=== PATIENT | female | born 1995 | race Caucasian/White ===

== ENCOUNTER 2016-05-29 21:33 | Outpatient (CLI) | payer BC ==
[2016-05-29 23:25] LABS: HEMOGLOBIN 11.3 gm/dl (12.3-15.3); RED BLOOD COUNT 3.57 M/UL (4.00-5.10); WHITE BLOOD COUNT 12.3 K/UL (4.5-11.0)
== END 2016-05-30 00:29 | disposition home or self-care (01) ==
LOC: GENOP 21:33
PROVIDERS: Obstetrics & Gynecology
DX: O26.893 Other specified pregnancy related conditions, third trimester (principal); R10.9 Unspecified abdominal pain; R11.0 Nausea; Z3A.31 31 weeks gestation of pregnancy
CPT/HCPCS: 36415; 80076; 82731; 85025; G0463

== ENCOUNTER 2016-06-01 12:48 | Outpatient (CLI) | payer BC | END 2016-06-01 14:27 | disposition home or self-care (01) | LOC: GENOP 12:48 | DX: O26.893 Other specified pregnancy related conditions, third trimester (principal); R10.9 Unspecified abdominal pain; Z3A.32 32 weeks gestation of pregnancy | CPT/HCPCS: 81001; G0463 ==

== ENCOUNTER → 2016-06-06 | Outpatient (CLI) | payer BC ==
[~2016-06-06] MED LIST: COLACE 100MG C100 MG PO
== END ==
DX: Z01.818 Encounter for other preprocedural examination (principal); O29.40 Spinal and epidural anesthesia induced headache during pregnancy, unspecified trimester; D68.0 Von Willebrand disease; Z3A.00 Weeks of gestation of pregnancy not specified

== ENCOUNTER → 2016-06-11 | Outpatient (CLI) | payer BC | LOC: US 07:45 | DX: O99.89 Other specified diseases and conditions complicating pregnancy, childbirth and the puerperium (principal); K82.8 Other specified diseases of gallbladder; N28.89 Other specified disorders of kidney and ureter; Z3A.01 Less than 8 weeks gestation of pregnancy | CPT/HCPCS: 76705 ==

== ENCOUNTER 2016-06-25 02:13 | Outpatient (CLI) | payer BC ==
[2016-06-25 03:28] LABS: HEMOGLOBIN 11.8 gm/dl (12.3-15.3); RED BLOOD COUNT 3.74 M/UL (4.00-5.10); WHITE BLOOD COUNT 11.4 K/UL (4.5-11.0)
[2016-06-25 03:44] LABS: BUN/CREATININE RATIO 14 (0-10)
== END 2016-06-25 14:42 | disposition home or self-care (01) ==
LOC: GENOP 02:13
PROVIDERS: Obstetrics & Gynecology
DX: O26.613 Liver and biliary tract disorders in pregnancy, third trimester (principal); O99.89 Other specified diseases and conditions complicating pregnancy, childbirth and the puerperium; R10.9 Unspecified abdominal pain; M54.5 Low back pain; K82.9 Disease of gallbladder, unspecified; Z3A.35 35 weeks gestation of pregnancy
CPT/HCPCS: 80053; 82150; 83690; 85025; 96360; 96361; 96365; 96367; 96374; J2270; J7120

== ENCOUNTER → 2016-07-06 | Outpatient (CLI) | payer BC | LOC: GENOP 17:17 | DX: O42.913 Preterm premature rupture of membranes, unspecified as to length of time between rupture and onset of labor, third trimester (principal); Z3A.35 35 weeks gestation of pregnancy | CPT/HCPCS: 81001; 83518; G0463 ==

== ENCOUNTER 2016-07-14 15:54 | Inpatient (IN) | payer BC ==
[~2016-07-14] VITALS: Ht 162.6 cm; Wt 93.9 kg
[2016-07-14 16:30] LABS: HEMOGLOBIN 11.9 gm/dl (12.3-15.3); RED BLOOD COUNT 3.7 M/UL (4.00-5.10); WHITE BLOOD COUNT 13.2 K/UL (4.5-11.0)
[2016-07-17 03:39] LABS: HEMOGLOBIN 9.9 gm/dl (12.3-15.3); RED BLOOD COUNT 3.16 M/UL (4.00-5.10); WHITE BLOOD COUNT 17.6 K/UL (4.5-11.0)
[2016-07-17 03:56] LABS: BUN/CREATININE RATIO 12 (0-10)
[2016-07-18] MEDS ORDERED: COLACE 100MG C100 MG PO (17:59)
== END 2016-07-18 13:25 | disposition home or self-care (01) | DRG 775 ==
LOC: GENOP 15:54 → OB 16:09
PROVIDERS: Obstetrics & Gynecology; ADMIT Obstetrics & Gynecology
PROC: 10E0XZZ Delivery of Products of Conception, External Approach (ICD-10-PCS; principal; 2016-07-16)
PROC: 0KQM0ZZ Repair Perineum Muscle, Open Approach (ICD-10-PCS; 2016-07-16)
PROC: 10907ZC Drainage of Amniotic Fluid, Therapeutic from Products of Conception, Via Natural or Artificial Opening (ICD-10-PCS; 2016-07-16)
PROC: 3E033VJ Introduction of Other Hormone into Peripheral Vein, Percutaneous Approach (ICD-10-PCS; 2016-07-16)
DX: O69.81X0 Labor and delivery complicated by cord around neck, without compression, not applicable or unspecified (principal); O26.613 Liver and biliary tract disorders in pregnancy, third trimester; O99.113 Other diseases of the blood and blood-forming organs and certain disorders involving the immune mechanism complicating pregnancy, third trimester; D68.0 Von Willebrand disease; K80.80 Other cholelithiasis without obstruction; Z3A.38 38 weeks gestation of pregnancy; Z37.0 Single live birth; O70.1 Second degree perineal laceration during delivery
CPT/HCPCS: 36415; 51702; 80048; 81001; 82800; 85025; 85384; 85610; 85730; 86850; 86900; 86901; 86920; J2210; J2300; J2405; J2590; J2597; J2795; J3430; J7050; J7120

== ENCOUNTER 2020-05-23 17:03 | Emergency (ER) | payer BC, OTHER | END 2020-05-23 20:50 | disposition home or self-care (01) | LOC: ER1 17:03 | DX: U07.1 COVID-19 (principal); H57.11 Ocular pain, right eye; D68.0 Von Willebrand disease; Z88.5 Allergy status to narcotic agent | CPT/HCPCS: 99283 ==